=== PATIENT | male | born 1960 | race Caucasian/White ===

== ENCOUNTER 2016-06-12 07:40 | Day surgery (SDC) | payer BC ==
[2016-06-07 09:40] VITALS: BMI 30.1
[~2016-06-12 07:40] MED LIST: LACTATED RINGERS 1,000 ML IV SCH
[2016-06-12 08:02] VITALS: RESP 16; TEMP 98.2
[2016-06-12] MEDS ORDERED: LIDOCAINE 1% 20 ML VIAL (10MG/ML) FOR IV START INTRADERMA ONE (08:07)
[2016-06-12] MEDS ORDERED: LIDOCAINE 1% INJ 10MG/ML (20 ML MDV) ONE (08:40)
[2016-06-12] MEDS ORDERED: PROPOFOL 10 MG/ML 20 ML VIAL IV ONE (08:40)
--- NOTE | 2016-06-12 09:15 | P.PCN ---
Date of Procedure: 06/12/16 Procedure(s) Performed: Procedure: Colonoscopy and polypectomy. Preoperative diagnosis: Screening for neoplasia. Postoperative diagnosis: Small/diminutive polyps in the sigmoid and rectum snared but no large polyps or cancer. Preparation: HalfLytely prep. Sedation: Was provided by anesthesia. Brief clinical history: The patient is a 56-year-old male who is referred for this evaluation for screening for neoplasia age being his risk factor. He has no abdominal complaints, bleeding or anemia. No family history of colon cancer. This would be his first colonoscopy. Procedure: With the patient on his left lateral decubitus position and after informed consent and adequate sedation, the perianal area was inspected and it did not show any fissures or fistulas. There were no masses felt on digital rectal examination. The Olympus CFQ 160L video colonoscope was then inserted in the rectum in the usual fashion and advanced to the cecum. The preparation was good. The mucosa appeared healthy. There were 3 small/diminutive polyps noted in the rectum and distal sigmoid. Two were snared and retrieved by suction and one in the distal sigmoid was fulgurated. There were no large polyps or cancer. I retroflexed endoscope in the rectum before the endoscope was withdrawn. The patient tolerated the procedure well. Plan: The patient was reassured. He will follow up with you as planned and I recommended repeat exam in 5 years.
[2016-06-12 09:44] VITALS: BP 115/76; PULSE 70
== END 2016-06-12 09:46 | disposition home or self-care (01) ==
LOC: ORWHC2ENDO 07:40
DX: Z12.11 Encounter for screening for malignant neoplasm of colon (principal); D12.5 Benign neoplasm of sigmoid colon; K63.5 Polyp of colon; K62.1 Rectal polyp; I10 Essential (primary) hypertension; Z79.82 Long term (current) use of aspirin; Z79.899 Other long term (current) drug therapy; Z87.891 Personal history of nicotine dependence
CPT/HCPCS: 45388; 45385; 88305; J2001; J2704; 99153

== ENCOUNTER → 2017-03-05 | Outpatient (CLI) | payer BC ==
[2017-03-05 10:37] LABS: CH 31.3; CHCM 33.6; HCT 45.2 % (39.0-53.0); HDW 2.31; HGB 14.8 gm/dL (13.0-17.5); MCH 30.7 pg (25.0-35.0); MCHC 32.8 g/dL (31.0-37.0); MCV 93.7 fL (80.0-100.0); Mean Platelet Volume 6.8; RBC 4.83 m/uL (4.30-5.90); RDW 12.1 % (11.5-15.5); WBC 11.3 k/uL (3.8-10.6)
[2017-03-05 11:42] LABS: ALT 45 U/L (21-72); AST 41 U/L (17-59); Alkaline Phosphatase 80 U/L (38-126); Anion Gap 10 mmol/L; Blood Urea Nitrogen 27 mg/dL (9-20); Calcium 10.2 mg/dL (8.4-10.2); Carbon Dioxide 25 mmol/L (22-30); Chloride 103 mmol/L (98-107); Cholesterol 235 mg/dL (<200); Glucose 114 mg/dL (74-99); HDL Cholesterol 70 mg/dL (40-60); Non-African American GFR(MDRD) 56 (>60 ml/min/1.73 sqM); Potassium 5.3 mmol/L (3.5-5.1); Sodium 138 mmol/L (137-145); Total Bilirubin 0.8 mg/dL (0.2-1.3)
[2017-03-05 12:52] LABS: Prostate Specific Antigen 1.67 ng/mL (0.00-4.00)
== END | disposition home or self-care (01) ==
LOC: LABWHC1 09:42
PROVIDERS: ATTEND Family Medicine
DX: Z00.01 Encounter for general adult medical examination with abnormal findings (principal); I10 Essential (primary) hypertension
CPT/HCPCS: 36415; 80053; 80061; 84153; 85027

== ENCOUNTER 2019-02-03 22:31 | Emergency (ER) | payer BC ==
[2019-02-03] MEDS ORDERED: KETOROLAC 30 MG/ML 1 ML VIAL IVP STA (22:53)
[2019-02-03] MEDS ORDERED: DIAZEPAM 5 MG TAB PO STA (22:54)
[2019-02-03] MEDS ORDERED: predniSONE 20 MG TAB PO STA (22:54)
--- NOTE | 2019-02-03 22:54 | ED ---
Back Pain HPI - General Chief Complaint: Back Pain/Injury Stated Complaint: Sciatica Pain Time Seen by Provider: 02/03/19 22:42 Source: patient Limitations: no limitations - History of Present Illness Initial Comments: 58-year-old male presents emergency for evaluation of right-sided sciatica. Patient states since Sunday he has had his sciatic pain he states that it is a sharp burning pain from the right side of the lower back down to the buttock towards the right knee. Patient states he has experienced this before comes and goes. Patient denies pain greater than 6 weeks. He denies any history of trauma or falls. Patient states he is an avid runner and ran 6 miles earlier this week. Patient denies history of cancer or IV drug use. Patient denies any paresthesias anesthesia or weakness of the lower extremities. Patient denies any urinary retention or incontinence of bowel or bladder. He denies any increase in the pain at night. Denies abdominal pain,chest pain, hematuria, dysuria, groin pain, frequency. Patient states that the pain does increase when sitting or lying flat with pressure on the right buttock. Patient states the pain is relieved when standing up that increases with ambulation. Patient has a fever or chills night sweats. Patient denies any coagulopathies. Upon arrival patient is ambulating without difficulty, afebrile. - Related Data Home Medications Medication Instructions Recorded Confirmed Aspirin [Adult Low Dose Aspirin EC] 81 mg PO DAILY 06/07/16 06/12/16 Chromium 1 tab PO DAILY 06/07/16 06/12/16 Curcumin 1 cap PO DAILY 06/07/16 06/12/16 Garlic 1 each PO DAILY 06/07/16 06/12/16 L.acidoph,Paracasei, B.lactis 1 each PO DAILY 06/07/16 06/12/16 [Probiotic] Lisinopril [Zestril] 10 mg PO DAILY 06/07/16 06/12/16 Multivitamins, Thera [Multivitamin] 1 tab PO DAILY 06/07/16 06/12/16 [place]-3 Fatty Acids/Fish Oil [Fish 1 each PO DAILY 06/07/16 06/12/16 Oil 1,000 mg Softgel] Ubidecarenone [Co Q-10] 100 mg PO DAILY 06/07/16 06/12/16 Previous Rx's Medication Instructions Recorded predniSONE 20 mg PO BID 5 Days #10 tab 02/03/19 Allergies Allergy/AdvReac Type Severity Reaction Status Date / Time No Known Allergies Allergy Verified 02/03/19 22:40 Review of Systems ROS Statement: Those systems with pertinent positive or pertinent negative responses have been documented in the HPI. ROS Other: All systems not noted in ROS Statement are negative. Past Medical History Past Medical History: Hypertension, Skin Disorder Additional Past Medical History / Comment(s): HX OF JAUNDICE AT 7 YEARS OLD, CHAPPED SKIN GROIN AREA FROM SWEATING WITH EXERCISE. History of Any Multi-Drug Resistant Organisms: None Reported Past Surgical History: Hernia Repair Additional Past Surgical History / Comment(s): LEFT INGUINAL HERNIA, 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 Past Anesthesia/Blood Transfusion Reactions: No Reported Reaction Past Psychological History: No Psychological Hx Reported Smoking Status: Former smoker Past Alcohol Use History: Rare Past Drug Use History: None Reported - Past Family History Mother Family Medical History: No Reported History General Exam - General Exam Comments Initial Comments: General: The patient is awake and alert, in no distress, and does not appear acutely ill. Eye: Pupils are equal, round and reactive to light, extra-ocular movements are intact. No nystagmus. There is normal conjunctiva bilaterally. No signs of icterus. Ears, nose, mouth and throat: There are moist mucous membranes and no oral lesions. Neck: The neck is supple, there is no tenderness or JVD. Cardiovascular: There is a regular rate and rhythm. No murmur, rub or gallop is appreciated. Respiratory: Lungs are clear to auscultation, respirations are non-labored, breath sounds are equal. No wheezes, stridor, rales, or rhonchi. Musculoskeletal: Normal inspection of the thoracic and lumbar spine. No masses ecchymosis abrasions or signs of trauma. Patient able to fully range at the lower external ears bilaterally. With full strength. No saddle anesthesia. Normal ROM, no tenderness. Weight bearing without difficulty.. Pulses equal bilaterally 2+. Patient has tenderness to palpation of the mid buttock. Neurological: A&O x 3. CN II-XII intact grossly, There are no obvious motor or sensory deficits. Coordination appears grossly intact. Speech is normal. Skin: Skin is warm and dry and no rashes or lesions are noted. Psychiatric: Cooperative, appropriate mood & affect, normal judgment. Limitations: no limitations Course Vital Signs 02/03/19 22:38 Temperature 98.0 F Pulse Rate 70 Respiratory 16 Rate Blood Pressure 174/77 O2 Sat by Pulse 98 Oximetry Medical Decision Making - Medical Decision Making 58-year-old male presenting to the ER for sciatic pain. Patient has experienced this pain in the past. Patient states he believes he slept on it wrong. History taking reveals no flags concerning for cauda equina. No midline tenderness to palpation on exam. Patient given Toradol, Valium. Patient requesting medication just asleep and then he would like to be discharged home. Patient given 50 mg by mouth Benadryl. Patient instructed to follow-up with primary care provider return parameters discussed patient was discharged appearing well to discuss the case with attending provider Dr. Martinez Disposition Clinical Impression: Right low back pain, Right sciatic nerve pain Disposition: HOME SELF-CARE Condition: Good Instructions (If sedation given, give patient instructions): Sciatica (ED) Additional Instructions: Please use medication as discussed. Please follow-up with family doctor in the next 2 days. Please return to emergency room if the symptoms increase or worsen or for any other concerns. Prescriptions: predniSONE 20 mg PO BID 5 Days #10 tab Is patient prescribed a controlled substance at d/c from ED?: No Referrals: Ryan Gallardo MD [Primary Care Provider] - 1-2 days Time of Disposition: 23:42
[2019-02-03] MEDS ORDERED: KETOROLAC 30 MG/ML 1 ML VIAL IM STA (23:06)
[2019-02-03] MEDS ORDERED: diphenhydrAMINE 50 MG CAP PO STA (23:36)
[2019-02-03 23:45] VITALS: BP 167/77; PULSE 73; RESP 18; TEMP 98
== END 2019-02-03 23:52 | disposition home or self-care (01) ==
LOC: EC 22:31
DX: M54.41 Lumbago with sciatica, right side (principal); I10 Essential (primary) hypertension; Z87.891 Personal history of nicotine dependence; Z79.82 Long term (current) use of aspirin; Z79.899 Other long term (current) drug therapy
CPT/HCPCS: 99283; 96372; J1885; J7512

== ENCOUNTER → 2019-03-12 | Outpatient (CLI) | payer BC ==
[2019-03-12 10:15] LABS: HCT 43.6 % (39.0-53.0); HGB 14.4 gm/dL (13.0-17.5); MCH 30.6 pg (25.0-35.0); MCHC 33.1 g/dL (31.0-37.0); MCV 92.5 fL (80.0-100.0); Platelet Count 265 k/uL (150-450); RBC 4.71 m/uL (4.30-5.90); RDW 12.1 % (11.5-15.5); WBC 5.9 k/uL (3.8-10.6)
[2019-03-12 12:31] LABS: Appearance,Urine Clear (Clear); Bilirubin,Urine Negative (Negative); Blood,Urine Negative (Negative); Color,Urine Yellow; Glucose,Urine (UA) Negative (Negative); Ketones,Urine 1+ (Negative); Leukocyte Esterase,Urine Negative (Negative); Nitrite,Urine Negative (Negative); Protein,Urine Negative (Negative); Specific Gravity,Urine 1.019 (1.001-1.035); Urobilinogen,Urine <2.0 mg/dL (<2.0)
[2019-03-12 16:01] LABS: African American GFR (CKD) 84.1 (60.0-200.0); Albumin 4.5 g/dL (3.80-4.90); Albumin/Globulin Ratio 2.25 (1.60-3.17); Anion Gap 11.3 mmol/L (4.00-12.00); BUN/Creat Ratio 23.64 Ratio (12.00-20.00); Calcium 9.5 mg/dL (8.7-10.3); Carbon Dioxide 23.7 mmol/L (21.6-31.8); Chol/HDL Ratio 3.55; LDL Cholesterol,Calculated 159.2 mg/dL (0.0-131.0); Non-African American GFR(CKD) 72.6 (60.0-200.0); Potassium 4.8 mmol/L (3.5-5.5); Total Bilirubin 0.8 mg/dL (0.2-1.2); Total Protein 6.5 g/dL (6.2-8.2); VLDL Calculation 16.8 mg/dL (5.00-40.00)
== END | disposition home or self-care (01) ==
LOC: LABWHC1 08:53
PROVIDERS: ATTEND Family Medicine
DX: Z00.01 Encounter for general adult medical examination with abnormal findings (principal)
CPT/HCPCS: 36415; 80053; 80061; 81003; 84153; 85027

== ENCOUNTER → 2019-07-01 | Outpatient (CLI) | payer BC ==
[2019-07-01 11:57] LABS: HGB 14.8 gm/dL (13.0-17.5); MCH 30.7 pg (25.0-35.0); MCHC 33.6 g/dL (31.0-37.0); MCV 91.1 fL (80.0-100.0); Mean Platelet Volume 7.7; Platelet Count 236 k/uL (150-450); RBC 4.83 m/uL (4.30-5.90); RDW 11.8 % (11.5-15.5); WBC 5.7 k/uL (3.8-10.6)
== END | disposition home or self-care (01) ==
LOC: LABPAT 10:23
PROVIDERS: ATTEND Surgery
DX: Z01.810 Encounter for preprocedural cardiovascular examination (principal); Z01.812 Encounter for preprocedural laboratory examination; K40.90 Unilateral inguinal hernia, without obstruction or gangrene, not specified as recurrent
CPT/HCPCS: 85027; 93005

== ENCOUNTER 2019-07-02 07:12 | Day surgery (SDC) | payer BC ==
[2019-07-01 09:44] VITALS: BMI 29.2
[~2019-07-02 07:12] MED LIST changes: +DEXAMETHASONE SOD PHOSPHATE 10 MG/ML 1 ML VIAL IV ONE; +HEPARIN SODIUM,PORCINE 5,000 UNIT/ML 1 ML VIAL SQ ONE; +HYDROmorphone 0.5 MG/0.5 ML SYRINGE IVP PRN; +LIDOCAINE 1% (10MG/ML) FOR IV START INTRADERMA PRN; +MIDAZOLAM 2 MG/2 ML VIAL IV PRN; +ONDANSETRON 4 MG/2 ML VIAL IVP ONE; +SCOPOLAMINE 1.5MG/72HR PATCH TRANSDERM ONE
[2019-07-02] MEDS ORDERED: fentaNYL (PF) 50 MCG/ML 2 ML AMP IVP ONE (08:27)
--- NOTE | 2019-07-02 08:57 | P.ANPRN ---
Procedure Note - Anesthesia - Nerve Block Performed Right Transversus Abdominis Single Time Out Performed: Yes ([id number]) Date of Procedure: 07/02/19 Procedure Start Time: : Procedure Stop Time: : Location of Patient: PreOp Indication: Acute Post-Operative Pain, Requested by Surgeon Specifically requested for management of pain by DrAlexander: Nilesh Ruiz Sedation Type: Sedate with meaningful contact maintained Preparation: Sterile Prep Position: Supine Catheter: None Needle Types: Pajunk Needle Gauge: 21 Ultrasound used to visualize needle placement: Yes Ultrasound used to observe medication spread: Yes Injectate: 0.5% Ropivacaine (see comment for volume) (20cc) Blood Aspirated: No Pain Paresthesia on Injection Noted: No Resistance on Injection: Normal Image Stored and Saved: Yes Events: Uneventful and Well Tolerated
[2019-07-02] MEDS ORDERED: fentaNYL (PF) 50 MCG/ML 2 ML AMP ONE (09:30)
[2019-07-02] MEDS ORDERED: PROPOFOL 10 MG/ML 20 ML VIAL IV ONE (09:30)
[2019-07-02] MEDS ORDERED: MIDAZOLAM 2 MG/2 ML VIAL ONE (09:30)
[2019-07-02] MEDS ORDERED: GLYCOPYRROLATE 0.2 MG/ML 2 ML VIAL ONE (09:30)
[2019-07-02] MEDS ORDERED: ROPIVACAINE 5 MG/ML 30 ML VIAL ONE (09:30)
[2019-07-02] MEDS ORDERED: LIDOCAINE 1% INJ 10MG/ML (20 ML MDV) ONE (09:30)
[2019-07-02] MEDS ORDERED: NEOSTIGMINE 1 MG/ML 10 ML VIAL ONE (09:30)
[2019-07-02] MEDS ORDERED: ROCURONIUM BROMIDE 10 MG/ML 5 ML VIAL IV ONE (09:30)
[2019-07-02] MEDS ORDERED: BUPIVACAINE (PF) 0.25% 30 ML VIAL SQ ONE ×2 (09:52)
[2019-07-02] MEDS ORDERED: LACTATED RINGERS 1,000 ML IV ONE (10:50)
--- NOTE | 2019-07-02 11:12 | P.OP ---
Date of Procedure: 07/02/19 Procedure(s) Performed: PREOPERATIVE DIAGNOSIS: Right inguinal hernia POSTOPERATIVE DIAGNOSIS: Same PROCEDURE: Laparoscopic repair right inguinal hernia with the da Joe robot assistance with mesh SURGEON: Joseph EBL: Minimal ANESTHESIA: General COMPLICATIONS: None OPERATIVE PROCEDURE: Patient was placed in the operating table in the supine position. The patient was placed under general anesthesia. The abdomen was prepped and draped in usual sterile fashion. A small curvilinear supraumbilical incision was made. The fascia was retracted anteriorly with Jaki forceps. The Veress needle was inserted. The saline drop test was normal. Insufflation took place to 15 mmHg. An 8 mm trocar was used to enter the peritoneal cavity at that time. 2 additional 8 mm trochars were placed in the right upper quadrant and left upper quadrant under visualization. The robotic arms were then brought in and docked into place. The fenestrated bipolar was used in the left arm and the laparoscopic zulma was utilized in the right arm. A 30 8 mm scope was used in the up position. The peritoneal cavity was inspected. The patient's left groin had no evidence of hernia. The right groin had what initially appeared to represent a direct hernia with the hole in the peritoneum being medial to the inferior epigastric vasculature. The peritoneum was incised in a horizontal fashion cephalad to the internal inguinal ring. Following that careful dissection of the preperitoneal space took place. This took place using both electrocautery, sharp dissection but primarily blunt dissection. Visualization of the pubic tubercle and Bayron's ligament took place medially. Full dissection took place laterally as well. The hernia sac was fully dissected. It was evident that this time that there was extension of the hernia sac into the internal inguinal ring making this an indirect hernia. Once we had adequate space the 15 x 10 progrip mesh was advanced into the preperitoneal space and flattened out appropriately to cover all potential hernia sites. No sutures were used. The peritoneal defect was then closed using a locking 2-0 strata fix suture. A small defect in the peritoneum was closed using a [id number] 3-0 Vicryl suture. The pneumoperitoneum was then evacuated. The skin of all 3 si fredrick was closed using a 4-0 Monocryl stitch. Skin glue was then applied. DISPOSITION: Stable to recovery room
[2019-07-02 11:23] VITALS: RESP 16; TEMP 97.3
[2019-07-02 12:34] VITALS: BP 97/55; PULSE 71
== END 2019-07-02 13:06 | disposition home or self-care (01) ==
LOC: OR 07:12
PROVIDERS: ATTEND Surgery
DX: K40.90 Unilateral inguinal hernia, without obstruction or gangrene, not specified as recurrent (principal); I10 Essential (primary) hypertension; R73.03 Prediabetes; Z98.890 Other specified postprocedural states; Z82.49 Family history of ischemic heart disease and other diseases of the circulatory system; Z79.899 Other long term (current) drug therapy
CPT/HCPCS: 49650; S2900; 64486

== ENCOUNTER → 2020-03-16 | Outpatient (CLI) | payer BC ==
[2020-03-16 09:47] LABS: HCT 43.9 % (39.0-53.0); HGB 15.1 gm/dL (13.0-17.5); MCH 31.6 pg (25.0-35.0); MCHC 34.3 g/dL (31.0-37.0); Mean Platelet Volume 7.1; Platelet Count 233 k/uL (150-450); RBC 4.77 m/uL (4.30-5.90); WBC 5.7 k/uL (3.8-10.6)
[2020-03-16 15:55] LABS: African American GFR (CKD) 106.5 (60.0-200.0); Albumin 4.4 g/dL (3.80-4.90); Albumin/Globulin Ratio 1.91 (1.60-3.17); BUN/Creat Ratio 13.33 Ratio (12.00-20.00); Chol/HDL Ratio 3.41; Globulin 2.3 g/dL (1.6-3.3); LDL Cholesterol,Calculated 135.6 mg/dL (0.0-131.0); Non-African American GFR(CKD) 91.9 (60.0-200.0); Potassium 4.8 mmol/L (3.5-5.5); Total Bilirubin 0.8 mg/dL (0.3-1.2); Total Protein 6.7 g/dL (6.2-8.2); VLDL Calculation 18.4 mg/dL (5.00-40.00)
== END | disposition home or self-care (01) ==
LOC: LABWHC1 08:45
PROVIDERS: ATTEND Family Medicine
DX: Z00.01 Encounter for general adult medical examination with abnormal findings (principal)
CPT/HCPCS: 80061; 80053; 85027; 36415; G0103

== ENCOUNTER → 2021-02-24 | Outpatient (CLI) | payer BC ==
[2021-02-24 11:31] LABS: HCT 43.2 % (39.6-50.0); HGB 14.2 g/dL (13.0-17.0); MCH 30.1 pg (27.0-32.0); MCHC 32.9 g/dL (32.0-37.0); MCV 91.5 fL (80.0-97.0); Mean Platelet Volume 9.9 fL (9.5-12.2); Platelet Count 250 X 10*3/uL (140-440); RBC 4.72 X 10*6/uL (4.40-5.60); RDW 12.2 % (11.5-14.5)
[2021-02-24 15:29] LABS: African American GFR (CKD) 83.9 (60.0-200.0); Albumin 4.8 g/dL (3.8-4.9); Anion Gap 15.2 mmol/L (4.00-12.00); BUN/Creat Ratio 21.74 Ratio (12.00-20.00); Blood Urea Nitrogen 23.7 mg/dL (9.0-27.0); Calcium 9.6 mg/dL (8.7-10.3); Carbon Dioxide 21.4 mmol/L (21.6-31.8); Chol/HDL Ratio 3.36 Ratio; Globulin 2.4 g/dL (1.6-3.3); HDL Cholesterol 78.2 mg/dL (40.00-60.00); LDL Cholesterol,Calculated 169.9 mg/dL (0.0-131.0); Non-African American GFR(CKD) 72.4 (60.0-200.0); Potassium 5.4 mmol/L (3.5-5.5); Prostate Specific Antigen 2.3 ng/mL (0.00-4.50); Total Bilirubin 0.8 mg/dL (0.30-1.20); Total Protein 7.2 g/dL (6.2-8.2); Triglycerides 74.3 mg/dL (0.00-149.00); VLDL Calculation 14.86 mg/dL (5.00-40.00)
== END | disposition home or self-care (01) ==
LOC: LABWHC1 08:02
PROVIDERS: ATTEND Family Medicine
DX: Z00.01 Encounter for general adult medical examination with abnormal findings (principal)
CPT/HCPCS: 36415; 80053; 80061; 84153; 85027

== ENCOUNTER → 2022-02-27 | Outpatient (CLI) | payer BC ==
[2022-02-27 18:11] LABS: HCT 42.6 % (39.6-50.0); HGB 14.9 g/dL (13.0-17.0); MCH 30.8 pg (27.0-32.0); MCV 88.2 fL (80.0-97.0); Mean Platelet Volume 9.4 fL (9.5-12.2); NRBC Per 100 WBC 0 /100 WBCS (0.0-0.0); Platelet Count 246 X 10*3/uL (140-440); RBC 4.83 X 10*6/uL (4.40-5.60); RDW 11.8 % (11.5-14.5); WBC 6.61 X 10*3/uL (4.50-10.00)
[2022-02-27 18:29] LABS: ALT 26 U/L (10-49); AST 25 U/L (14-35); African American GFR (CKD) 109.6 (60.0-200.0); Albumin 4.6 g/dL (3.8-4.9); Albumin/Globulin Ratio 1.99 (1.60-3.17); Alkaline Phosphatase 89 U/L (41-126); BUN/Creat Ratio 11.29 Ratio (12.00-20.00); Blood Urea Nitrogen 9.2 mg/dL (9.0-27.0); Calcium 9.2 mg/dL (8.7-10.3); Carbon Dioxide 26.3 mmol/L (20.0-27.5); Chloride 98 mmol/L (96-109); Chol/HDL Ratio 3.85 Ratio; Globulin 2.3 g/dL (1.6-3.3); Glucose 115 mg/dL (70-110); LDL Cholesterol,Calculated 168.9 mg/dL (0.0-131.0); Non-African American GFR(CKD) 94.5 (60.0-200.0); Potassium 4.6 mmol/L (3.5-5.5); Sodium 134 mmol/L (135-145); Total Protein 6.9 g/dL (6.2-8.2); VLDL Calculation 16.16 mg/dL (5.00-40.00)
== END | disposition home or self-care (01) ==
LOC: LABWHC1 11:08
PROVIDERS: ATTEND Family Medicine
DX: Z00.01 Encounter for general adult medical examination with abnormal findings (principal); R73.09 Other abnormal glucose
CPT/HCPCS: 36415; 80053; 80061; 83036; 84153; 85027

== ENCOUNTER 2022-02-28 10:12 | Day surgery (SDC) | payer BC ==
[2022-02-23 09:18] VITALS: BMI 28.5
[2022-02-28] MEDS ORDERED: LIDOCAINE 1% (10MG/ML) FOR IV START INTRADERMA PRN (10:40)
[2022-02-28] MEDS ORDERED: LACTATED RINGERS 1,000 ML IV SCH (10:40)
[2022-02-28 10:49] VITALS: RESP 16; TEMP 97.6
[2022-02-28] MEDS ORDERED: LACTATED RINGERS 1,000 ML IV ONE (10:49)
[2022-02-28] MEDS ORDERED: PROPOFOL 10 MG/ML 20 ML VIAL IV ONE (11:07)
[2022-02-28] MEDS ORDERED: LIDOCAINE 2% INJ 20 MG/ML (2 ML VIAL) ONE (11:07)
--- NOTE | 2022-02-28 11:10 | P.GSHP ---
History of Present Illness H&P Date: 02/28/22 Chief Complaint: Colon cancer screening 61-year-old male here today for colonoscopy. Patient had 3 small polyps when he had his last colonoscopy 5 years ago. Biopsies were benign. No bowel complaints. Family history of colon cancer in a grandparent possibly. Past Medical History Past Medical History: Hypertension Additional Past Medical History / Comment(s): Covid infection ,steroids Dec 2021, HX OF JAUNDICE AT 7 YEARS OLD History of Any Multi-Drug Resistant Organisms: None Reported Past Surgical History: Hernia Repair Additional Past Surgical History / Comment(s): Sher INGUINAL HERNIA, 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 Past Anesthesia/Blood Transfusion Reactions: No Reported Reaction Smoking Status: Former smoker - Past Family History Mother Family Medical History: No Reported History Additional Family Medical History / Comment(s): preleukemia Medications and Allergies Home Medications Medication Instructions Recorded Confirmed Type lisinopriL [Zestril] 10 mg PO QAM 06/07/16 02/28/22 History Ascorbic Acid [Vitamin C] 1,000 mg PO DAILY 02/23/22 02/28/22 History Aspirin 81 mg PO DAILY 02/23/22 02/28/22 History Cholecalciferol [Vitamin D3 (25 50 mcg PO DAILY 02/23/22 02/28/22 History Mcg = 1000 Iu)] Multivitamins, Thera [Multivitamin 1 tab PO DAILY 02/23/22 02/28/22 History (formulary)] amLODIPine [Norvasc] 2.5 mg PO QAM 02/23/22 02/28/22 History Allergies Allergy/AdvReac Type Severity Reaction Status Date / Time No Known Allergies Allergy Verified 02/28/22 10:46 Surgical - Exam Vital Signs Temp Pulse Resp BP Pulse Ox 97.6 F 99 16 162/78 98 02/28/22 10:48 02/28/22 10:48 02/28/22 10:48 02/28/22 10:48 02/28/22 10:48 Physical exam: General: Well-developed, well-nourished HEENT: Normocephalic, sclerae nonicteric Abdomen: Nontender, nondistended Extremities: No edema Neuro: Alert and oriented Assessment and Plan (1) Colon cancer screening Narrative/Plan: Will proceed with colonoscopy at this time. Current Visit: Yes Status: Acute Code(s): Z12.11 - ENCOUNTER FOR SCREENING FOR MALIGNANT NEOPLASM OF COLON SNOMED Code(s): 059453091
--- NOTE | 2022-02-28 11:25 | P.PCN ---
Date of Procedure: 02/28/22 Procedure(s) Performed: PREOPERATIVE DIAGNOSIS: Colon cancer screening, history of polyps POSTOPERATIVE DIAGNOSIS: Normal exam PROCEDURE: Colonoscopy ANESTHESIA: MAC SURGEON: Nilesh Ruiz M.D. SPECIMENS: None ENDOSCOPIC PROCEDURE: The patient was placed on the endoscopy table in the left decubitus position. The Olympus colonoscope was inserted into the anus and passed under direct visualization to the base of the cecum. The appendiceal orifice was visualized. From that point the scope was slowly withdrawn inspecting all surfaces carefully. There were no neoplastic inflammatory or polypoid lesions throughout the cecum, ascending, transverse, descending, sigmoid and rectum. There was no visible diverticulosis noted. Digital rectal examination was normal. The patient was taken to the recovery room in stable condition per anesthesia guidelines. RECOMMENDATIONS: Resume diet. Repeat colonoscopy 7-10 years
[2022-02-28 11:57] VITALS: BP 149/76; PULSE 79
== END 2022-02-28 12:04 | disposition home or self-care (01) ==
LOC: ORWHC2ENDO 10:12
PROVIDERS: ATTEND Surgery
DX: Z12.11 Encounter for screening for malignant neoplasm of colon (principal); I10 Essential (primary) hypertension; Z86.16 Personal history of COVID-19; Z86.010 Personal history of colon polyps; Z87.891 Personal history of nicotine dependence; Z79.82 Long term (current) use of aspirin
CPT/HCPCS: 45378; J2704; J2001

== ENCOUNTER 2024-02-13 13:01 | Inpatient (IN) | payer BC, MEDICARE ==
[2024-02-13 13:06] VITALS: TEMP 98
--- NOTE | 2024-02-13 13:33 | ED ---
Arrhythmia/Palpitations HPI - General Chief Complaint: Arrhythmia/Palpitations Stated Complaint: HTN Time Seen by Provider: 02/13/24 13:05 Source: patient Mode of arrival: ambulatory Limitations: no limitations - History of Present Illness Initial Comments: 63-year-old male presents emergency department reporting palpitations. States that he had exercised this morning. Prior to hospital arrival he suddenly had sensation that his heart was racing. took his heart rate at home and found it to be high and therefore suggested that he come to the hospital. He has history of hypertension and takes amlodipine and lisinopril. No history of any irregular heart rhythms no history of coronary disease. No history of valvular disease. Patient does not take any blood thinners. No history of DVT or PE. No calf pain or swelling. No thyroid issues. No other alleviating, precipitating or modifying factors - Related Data Home Medications Medication Instructions Recorded Confirmed Multivitamins, Thera [Multivitamin 1 tab PO DAILY 02/23/22 02/13/24 (formulary)] Berberine Supplement 1 cap PO AC-TID 02/13/24 02/13/24 Chromium(Unknown Dose) 1 tab PO DAILY 02/13/24 02/13/24 Cinnamon(Unknown Dose) 1 tab PO DAILY 02/13/24 02/13/24 Co Q-10(Unknown Dose) 1 cap PO DAILY 02/13/24 02/13/24 Cranberry(Unknown Dose) 1 tab PO DAILY 02/13/24 02/13/24 Garlic(Unknown Dose) 1 tab PO DAILY 02/13/24 02/13/24 L.acidoph,Paracasei, B.lactis 1 cap PO DAILY 02/13/24 02/13/24 [Probiotic] Turmeric(Unknown Dose) 1 tab PO DAILY 02/13/24 02/13/24 Vitamin B Complex 1 cap PO DAILY 02/13/24 02/13/24 Vitamin C(Unknown Dose) 1 tab PO DAILY 02/13/24 02/13/24 Vitamin D(Unknown Dose) 1 tab PO DAILY 02/13/24 02/13/24 Previous Rx's Medication Instructions Recorded Apixaban [Eliquis] 5 mg PO BID #180 tab 02/14/24 Atorvastatin [Lipitor] 20 mg PO HS #90 tablet 02/14/24 Metoprolol Tartrate [Lopressor] 50 mg PO BID PRN #60 tab 02/14/24 lisinopriL [Zestril] 20 mg PO DAILY #90 tab 02/14/24 Allergies Allergy/AdvReac Type Severity Reaction Status Date / Time No Known Allergies Allergy Verified 02/13/24 16:54 Review of Systems ROS Statement: Those systems with pertinent positive or pertinent negative responses have been documented in the HPI. ROS Other: All systems not noted in ROS Statement are negative. 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 Past Anesthesia/Blood Transfusion Reactions: No Reported Reaction Past Psychological History: No Psychological Hx Reported Smoking Status: Former smoker - Past Family History Mother Family Medical History: No Reported History Additional Family Medical History / Comment(s): preleukemia General Exam Limitations: no limitations General appearance: alert, in no apparent distress Head exam: Present: atraumatic, normocephalic, normal inspection Eye exam: Present: normal appearance, PERRL, EOMI. Absent: scleral icterus, conjunctival injection, periorbital swelling ENT exam: Present: normal exam, mucous membranes moist Neck exam: Present: normal inspection. Absent: tenderness, meningismus, lymphadenopathy Respiratory exam: Present: normal lung sounds bilaterally. Absent: respiratory distress, wheezes, rales, rhonchi, stridor Cardiovascular Exam: Present: tachycardia, irregular rhythm, normal heart sounds. Absent: systolic murmur, diastolic murmur, rubs, gallop, clicks GI/Abdominal exam: Present: soft, normal bowel sounds. Absent: distended, tenderness, guarding, rebound, rigid Extremities exam: Present: normal inspection, full ROM, normal capillary refill. Absent: tenderness, pedal edema, joint swelling, calf tenderness Back exam: Present: normal inspection Neurological exam: Present: alert, oriented X3, CN II-XII intact Psychiatric exam: Present: normal affect, normal mood Skin exam: Present: warm, dry, intact, normal color. Absent: rash Course Vital Signs 02/13/24 02/13/24 02/13/24 13:02 14:28 14:30 Temperature 98 F Pulse Rate 166 H 151 H 179 H Respiratory 18 18 14 Rate Blood Pressure 173/80 103/49 103/49 O2 Sat by Pulse 99 97 96 Oximetry 02/13/24 02/13/24 02/13/24 15:00 15:29 15:30 Temperature Pulse Rate 133 H 100 100 Respiratory 14 18 14 Rate Blood Pressure 83/64 105/79 105/79 O2 Sat by Pulse 94 L Oximetry 02/13/24 02/13/24 02/13/24 16:00 16:02 16:30 Temperature Pulse Rate 96 123 H 90 Respiratory 14 14 Rate Blood Pressure 95/49 104/65 O2 Sat by Pulse Oximetry 02/13/24 02/13/24 02/13/24 17:00 17:30 18:00 Temperature Pulse Rate 90 88 85 Respiratory 12 13 15 Rate Blood Pressure 96/62 107/71 115/68 O2 Sat by Pulse Oximetry 02/13/24 02/13/24 02/13/24 18:30 19:00 22:00 Temperature Pulse Rate 88 93 73 Respiratory 14 18 14 Rate Blood Pressure 89/73 109/74 119/74 O2 Sat by Pulse 97 Oximetry 02/14/24 02/14/24 02/14/24 00:00 02:00 07:00 Temperature Pulse Rate 77 59 L 57 L Respiratory 12 12 14 Rate Blood Pressure 103/74 110/64 109/72 O2 Sat by Pulse 97 978 H Oximetry 02/14/24 02/14/24 08:59 13:00 Temperature Pulse Rate 64 77 Respiratory 16 18 Rate Blood Pressure 139/68 117/68 O2 Sat by Pulse Oximetry Medical Decision Making - Medical Decision Making Was pt. sent in by a medical professional or institution (, PA, CULLET TRUCKER, urgent care, hospital, or group home...) When possible be specific @ -No Did you speak to anyone other than the patient for history (EMS, parent, family, police, friend...)? What history was obtained from this source @ -Spoke with for history Did you review nursing and triage notes (agree or disagree)? Why? @ -I reviewed and agree with nursing and triage notes Were old charts reviewed (outside hosp., previous admission, EMS record, old EKG, old radiological studies, urgent care reports/EKG's, group home records)? Report findings @ -No old charts were reviewed Differential Diagnosis (chest pain, altered mental status, abdominal pain women, abdominal pain men, vaginal bleeding, weakness, fever, dyspnea, syncope, headache, dizziness, GI bleed, back pain, seizure, CVA, palpatations, mental health, musculoskeletal)? @ -Differential Palpitations Ventricular arrhythmias, atrial arrhythmias, myocardial infarction, anemia, thyrotoxicosis, electrolyte imbalance, hypokalemia, pulmonary embolism, pulmonary disease, drugs, alcohol, anxiety, stress.... This is not meant to be an all-inclusive list. EKG interpreted by me (3pts min.). @ -Yes and demonstrates A-fib with rate of 166. QRS 104. QTc of 348. No acute ST segment elevations or depressions X-rays interpreted by me (1pt min.). @ -Yes and demonstrates no acute process CT interpreted by me (1pt min.). @ -None done U/S interpreted by me (1pt. min.). @ -None done What testing was considered but not performed or refused? (CT, X-rays, U/S, labs)? Why? @ -None What meds were considered but not given or refused? Why? @ -None Did you discuss the management of the patient with other professionals (job bower i.e. , PA, CULLET TRUCKER, lab, RT, psych nurse, social science research assistant, documentation engineer, teacher, registration officer, returned case inspector)? Give summary @ -Spoke with admitting physician Was smoking cessation discussed for >3mins.? @ -No Was critical care preformed (if so, how long)? @ -Yes, 35 minutes for management of rapid A-fib on Cardifemi drip Were there social determinants of health that impacted care today? How? (Ho melessness, low income, unemployed, alcoholism, drug addiction, transportation, low edu. Level, literacy, decrease access to med. care, skilled nursing, rehab)? @ -No Was there de-escalation of care discussed even if they declined (Discuss DNR or withdrawal of care, Hospice)? DNR status @ -No What co-morbidities impacted this encounter? (DM, HTN, Smoking, COPD, CAD, Cancer, CVA, ARF, Chemo, Hep., AIDS, mental health diagnosis, sleep apnea, morbid obesity)? @ -None Was patient admitted / discharged? Hospital course, mention meds given and route, prescriptions, significant lab abnormalities, going to OR and other pertinent info. @ -Upon arrival patient seen and evaluated in bed 16. Thorough history and physical exam was performed. Patient does arrive with markedly elevated heart rate. IV is established. Laboratory studies are conducted. Chest x-ray was performed. Patient initiated on Cardizem which does have improvement in his rate. He is also started on a heparin drip. Recommended admission for new diagnosis of A-fib with RVR. Patient was agreeable with admission. Spoke with Dr. russ for admission Undiagnosed new problem with uncertain prognosis? @ -No Drug Therapy requiring intensive monitoring for toxicity (Heparin, Nitro, Insulin, Cardizem)? @ -Heparin, Cardizem Were any procedures done? @ -No Diagnosis/symptom? @ -New onset A-fib with RVR Acute, or Chronic, or Acute on Chronic? @ -Acute Uncomplicated (without systemic symptoms) or Complicated (systemic symptoms)? @ -Complicated Side effects of treatment? @ -No Exacerbation, Progression, or Severe Exacerbation? @ -No Poses a threat to life or bodily function? How? (Chest pain, [place], [place], pneumonia, PE, COPD, DKA, ARF, appy, cholecystitis, CVA, Diverticulitis, Homicidal, Suicidal, threat to staff... and all critical care pts) @ -Yes this patient arrives with markedly elevated heart rate - Lab Data Result diagrams: 02/14/24 09:17 02/14/24 09:17 Lab Results 02/13/24 02/13/24 02/13/24 Range/Units 13:28 13:28 13:28 WBC 8.7 (3.8-10.6) k/uL RBC 4.97 (4.30-5.90) m/uL Hgb 15.2 (13.0-17.5) gm/dL Hct 45.8 (39.0-53.0) % MCV 92.1 (80.0-100.0) fL MCH 30.7 (25.0-35.0) pg MCHC 33.3 (31.0-37.0) g/dL RDW 12.5 (11.5-15.5) % Plt Count 267 (150-450) k/uL MPV 7.3 Neutrophils % 80 % Lymphocytes % 13 % Monocytes % 4 % Eosinophils % 1 % Basophils % 0 % Neutrophils # 7.0 (1.3-7.7) k/uL Lymphocytes # 1.2 (1.0-4.8) k/uL Monocytes # 0.4 (0-1.0) k/uL Eosinophils # 0.1 (0-0.7) k/uL Basophils # 0.0 (0-0.2) k/uL PT 10.5 (10.0-12.5) sec INR 1.0 (<1.2) APTT 24.4 (22.0-30.0) sec D-Dimer 0.18 (<0.60) mg/L FEU Sodium 127 L (137-145) mmol/L Potassium 4.3 (3.5-5.1) mmol/L Chloride 98 (98-107) mmol/L Carbon Dioxide 20 L (22-30) mmol/L Anion Gap 9 mmol/L BUN 20 (9-20) mg/dL Creatinine 0.84 (0.66-1.25) mg/dL Est GFR (CKD-EPI)AfAm >90 (>60 ml/min/1.73 sqM) Est GFR (CKD-EPI)NonAf >90 (>60 ml/min/1.73 sqM) Glucose 266 H (74-99) mg/dL Calcium 9.2 (8.4-10.2) mg/dL Magnesium 1.8 (1.6-2.3) mg/dL Total Bilirubin 0.6 (0.2-1.3) mg/dL AST 37 (17-59) U/L ALT 29 (4-49) U/L Alkaline Phosphatase 71 (38-126) U/L Troponin I (0.000-0.034) ng/mL Total Protein 7.1 (6.3-8.2) g/dL Albumin 4.6 (3.5-5.0) g/dL TSH 0.955 (0.465-4.680) mIU/L 02/13/24 Range/Units 13:28 WBC (3.8-10.6) k/uL RBC (4.30-5.90) m/uL Hgb (13.0-17.5) gm/dL Hct (39.0-53.0) % MCV (80.0-100.0) fL MCH (25.0-35.0) pg MCHC (31.0-37.0) g/dL RDW (11.5-15.5) % Plt Count (150-450) k/uL MPV Neutrophils % % Lymphocytes % % Monocytes % % Eosinophils % % Basophils % % Neutrophils # (1.3-7.7) k/uL Lymphocytes # (1.0-4.8) k/uL Monocytes # (0-1.0) k/uL Eosinophils # (0-0.7) k/uL Basophils # (0-0.2) k/uL PT (10.0-12.5) sec INR (<1.2) APTT (22.0-30.0) sec D-Dimer (<0.60) mg/L FEU Sodium (137-145) mmol/L Potassium (3.5-5.1) mmol/L Chloride (98-107) mmol/L Carbon Dioxide (22-30) mmol/L Anion Gap mmol/L BUN (9-20) mg/dL Creatinine (0.66-1.25) mg/dL Est GFR (CKD-EPI)AfAm (>60 ml/min/1.73 sqM) Est GFR (CKD-EPI)NonAf (>60 ml/min/1.73 sqM) Glucose (74-99) mg/dL Calcium (8.4-10.2) mg/dL Magnesium (1.6-2.3) mg/dL Total Bilirubin (0.2-1.3) mg/dL AST (17-59) U/L ALT (4-49) U/L Alkaline Phosphatase (38-126) U/L Troponin I <0.012 (0.000-0.034) ng/mL Total Protein (6.3-8.2) g/dL Albumin (3.5-5.0) g/dL TSH (0.465-4.680) mIU/L Disposition Clinical Impression: Atrial fibrillation with RVR, Hyponatremia Disposition: ADMITTED IP TO THIS [facility] Condition: Stable Is patient prescribed a controlled substance at d/c from ED?: No Time of Disposition: 15:48 Decision to Admit Reason: Admit from EC Decision Date: 02/13/24 Decision Time: 15:48
[2024-02-13 13:50] LABS: Basophils % (A) 0 %; Eosinophils # (A) 0.1 k/uL (0-0.7); Eosinophils % (A) 1 %; HCT 45.8 % (39.0-53.0); HGB 15.2 gm/dL (13.0-17.5); Lymphocytes # (A) 1.2 k/uL (1.0-4.8); Lymphocytes % (A) 13 %; MCH 30.7 pg (25.0-35.0); MCHC 33.3 g/dL (31.0-37.0); MCV 92.1 fL (80.0-100.0); Mean Platelet Volume 7.3; Monocytes # (A) 0.4 k/uL (0-1.0); Monocytes % (A) 4 %; Neutrophils % (A) 80 %; Platelet Count 267 k/uL (150-450); RBC 4.97 m/uL (4.30-5.90); RDW 12.5 % (11.5-15.5); WBC 8.7 k/uL (3.8-10.6)
--- NOTE | 2024-02-13 14:04 | XR ---
EXAMINATION TYPE: XR chest 2V DATE OF EXAM: 02/13/2024 COMPARISON: NONE HISTORY: Shortness of breath TECHNIQUE: Frontal and lateral views of the chest are obtained. FINDINGS: Scattered senescent parenchymal changes noted. Hyperinflation compatible with COPD. No evidence for infiltrate. No evidence for atelectasis. Heart size is stable. Mediastinal structures are stable and grossly unremarkable. No evidence for hilar prominence. Degenerative changes dorsal spine. IMPRESSION: 1. No evidence for acute pulmonary disease. [facility], , 02/13/2024 2:02 PM
[2024-02-13 14:14] LABS: ALT 29 U/L (4-49); AST 37 U/L (17-59); African American GFR (CKD) >90 (>60 ml/min/1.73 sqM); Albumin 4.6 g/dL (3.5-5.0); Alkaline Phosphatase 71 U/L (38-126); Anion Gap 9 mmol/L; Blood Urea Nitrogen 20 mg/dL (9-20); Calcium 9.2 mg/dL (8.4-10.2); Carbon Dioxide 20 mmol/L (22-30); Chloride 98 mmol/L (98-107); Glucose 266 mg/dL (74-99); Magnesium 1.8 mg/dL (1.6-2.3); Non-African American GFR(CKD) >90 (>60 ml/min/1.73 sqM); Potassium 4.3 mmol/L (3.5-5.1); Sodium 127 mmol/L (137-145); Total Bilirubin 0.6 mg/dL (0.2-1.3); Total Protein 7.1 g/dL (6.3-8.2)
[2024-02-13 14:28] LABS: Partial Thromboplastin Time 24.4 sec (22.0-30.0); Prothrombin Time 10.5 sec (10.0-12.5)
[2024-02-13] MEDS: DILTIAZEM DRIP BOLUS FROM BAG 1 MG SOLN IV ONE (15:02)
[2024-02-13] MEDS: DILTIAZEM 125 MG in SODIUM CHLORIDE 0.9% 100 ML IV SCH (15:02)
[2024-02-13] MEDS: SODIUM CHLORIDE 0.9% 1,000 ML IV ONE (15:03)
[2024-02-13] MEDS ORDERED: NALOXONE 0.4 MG/ML 1 ML VIAL IV PRN (15:48)
[2024-02-13] MEDS ORDERED: HEPARIN SODIUM 1,000 UN/ML (10ML VL) IV PRN (15:50)
[2024-02-13] MEDS: HEPARIN SOD,PORK IN 0.45% NACL 25,000 UNIT in 0.45% NACL 1 250ML.BAG IV SCH (16:03)
[2024-02-13] MEDS: HEPARIN SODIUM 1,000 UN/ML (10ML VL) IV ONE (16:20)
[2024-02-13] MEDS ORDERED: DEXTROSE 50% SYRINGE 50 ML IVP PRN ×2 (16:35)
--- NOTE | 2024-02-13 17:03 | P.HPIM ---
History of Present Illness H&P Date: 02/13/24 Patient is a 63-year-old male with PMH of type 2 diabetes and hypertension presented to the ER after having an episode of palpitation at around 11:30 AM today. Patient states that he was at home when he started feeling sudden onset of palpitation associated with shortness of breath and diaphoresis. He describes he was feeling as if he "ran a 5K marathon". Patient had similar episode about 2 weeks ago but states it resolved after he had a meal. However at this time his symptoms did not resolve which prompted him to come to the ER for further evaluation. Patient denies any history of heart related issues such as arrhythmia and/or CAD. He has never been evaluated for any cardiac issues in the past. Patient otherwise denies nausea, vomiting, diarrhea, constipation, fever, chills, numbness or tingling in upper or lower extremities. Patient denies use of illicit drug. Denies any recent hospitalization or travel. No recent upper respiratory tract infection. Patient feels generally healthy. At the time of interview, patient is not complaining of any shortness of breath and/or chest pain. Lab evaluation shows sodium 127, potassium 4.3, chloride 98, bicarb 20, BUN 20, creatinine 0.84, glucose 266. WBC 8.7, hemoglobin 15.2, MCV 92.1, platelet count 267. Troponin I less than 0.012. TSH 0.955 Chest x-ray, independently interpreted shows no acute cardiopulmonary process. EKG shows independently interpreted A-fib with RVR. Review of systems: Pertinent positives and negatives as discussed in HPI, a complete review of systems was performed and all other systems are negative. Physical examination: Vital signs reviewed General: non toxic, no distress, appears at stated age, normal weight Derm: no unusual rashes/lesions, warm Head: atraumatic, normocephalic, symmetric Eyes: EOMI, no lid lag, anicteric sclera, pupils equal round reactive to light ENT: Nose and ears atraumatic Neck: No cervical lymphadenopathy, trachea midline, supple Mouth: no lip lesion, mucus membranes moist Cardiovascular: S1S2 irregular, tachycardic, no murmur, positive dorsalis pedis pulse bilateral, no edema Lungs: CTA bilateral, no rhonchi, no rales, no accessory muscle use Abdominal: soft, nontender to palpation, no guarding Ext: muscle strength 5 out of 5 in all 4 extremities grossly, no gross muscle atrophy, no contractures, Neuro: CN II-XI grossly intact, no gross focal neuro deficits Psych: Alert, oriented, appropriate affect Assessment/Plan: 63-year-old male with PMH of hypertension and type 2 diabetes is admitted for A- fib with the RVR. #New onset A-fib with the RVR EKG in ED shows A-fib with RVR Status post Cardizem 10 mg bolus Continue with Cardizem drip at 5 mg/h CHADVASC score is 3 Continue with heparin drip, monitor APTT, monitor for bleeding Ordered echocardiogram for structural evaluation Consult cardiology, consider cardioversion Cardiac telemetery TSH is 0.955 #Euvolemic hyponatremia Check serum osmolality Check urine sodium and urine osmolality Repeat BMP in pm #History of type 2 diabetes Patient is not on diabetic medication Serum glucose 266 Check HbA1c Accu-Chek and sliding scale insulin ACH S, monitor for hypoglycemia #Chronic conditions Hypertension Blood pressure is less than 120/80; hold lisinopril and amlodipine for now DVT prophylaxis: Heparin drip The patient is admitted with an anticipated more than 2 midnight stay for evaluation of A-fib with RVR CODE STATUS: Full code Discussed with: Patient Anticipated discharge place: Pending clinical course A total of 65 minutes was spent on the care of this complex patient more than 50% of the time was spent in counseling and care coordination. I have seen and evaluated the patient today. Discussed with the resident and a gree with the residents finding and plan as documented in the resident's note. Changes highlighted in blue font. 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 Past Anesthesia/Blood Transfusion Reactions: No Reported Reaction Past Psychological History: No Psychological Hx Reported Smoking Status: Former smoker - Past Family History Mother Family Medical History: No Reported History Additional Family Medical History / Comment(s): preleukemia Medications and Allergies Home Medications Medication Instructions Recorded Confirmed Type lisinopriL [Zestril] 10 mg PO DAILY 06/07/16 02/13/24 History Multivitamins, Thera [Multivitamin 1 tab PO DAILY 02/23/22 02/13/24 History (formulary)] amLODIPine [Norvasc] 2.5 mg PO DAILY 02/23/22 02/13/24 History Berberine Supplement 1 cap PO AC-TID 02/13/24 02/13/24 History Chromium(Unknown Dose) 1 tab PO DAILY 02/13/24 02/13/24 History Cinnamon(Unknown Dose) 1 tab PO DAILY 02/13/24 02/13/24 History Co Q-10(Unknown Dose) 1 cap PO DAILY 02/13/24 02/13/24 History Cranberry(Unknown Dose) 1 tab PO DAILY 02/13/24 02/13/24 History Fish Oil(Unknown Dose) 1 cap PO DAILY 02/13/24 02/13/24 History Garlic(Unknown Dose) 1 tab PO DAILY 02/13/24 02/13/24 History L.acidoph,Paracasei, B.lactis 1 cap PO DAILY 02/13/24 02/13/24 History [Probiotic] Turmeric(Unknown Dose) 1 tab PO DAILY 02/13/24 02/13/24 History Vitamin B Complex 1 cap PO DAILY 02/13/24 02/13/24 History Vitamin C(Unknown Dose) 1 tab PO DAILY 02/13/24 02/13/24 History Vitamin D(Unknown Dose) 1 tab PO DAILY 02/13/24 02/13/24 History Allergies Allergy/AdvReac Type Severity Reaction Status Date / Time No Known Allergies Allergy Verified 02/13/24 16:54 Physical Exam Vitals: Vital Signs Temp Pulse Resp BP Pulse Ox 02/13/24 16:02 123 H 02/13/24 15:29 100 18 105/79 02/13/24 15:00 133 H 14 83/64 94 L 02/13/24 14:30 179 H 14 103/49 96 02/13/24 14:28 151 H 18 103/49 97 02/13/24 13:02 98 F 166 H 18 173/80 99 Intake and Output 02/13/24 02/13/24 02/13/24 06:59 14:59 22:59 Other: Weight 87.543 kg Results CBC & Chem 7: 02/13/24 13:28 02/13/24 13:28 Labs: Abnormal Lab Results - Last 24 Hours (Table) 02/13/24 Range/Units 13:28 Sodium 127 L (137-145) mmol/L Carbon Dioxide 20 L (22-30) mmol/L Glucose 266 H (74-99) mg/dL
[2024-02-13 18:51] LABS: Glucose,Whole Blood 82 mg/dL (70-110)
[2024-02-13] MEDS: INSULIN ASPART (NovoLOG) 100 UNIT/ML VIAL SQ SCH (19:04)
[2024-02-13 19:10] LABS: African American GFR (CKD) >90 (>60 ml/min/1.73 sqM); Anion Gap 4 mmol/L; Blood Urea Nitrogen 17 mg/dL (9-20); Calcium 8.9 mg/dL (8.4-10.2); Carbon Dioxide 21 mmol/L (22-30); Chloride 106 mmol/L (98-107); Glucose 73 mg/dL (74-99); Non-African American GFR(CKD) >90 (>60 ml/min/1.73 sqM); Potassium 4.1 mmol/L (3.5-5.1); Sodium 131 mmol/L (137-145)
[2024-02-13 20:38] LABS: Glucose,Whole Blood 152 mg/dL (70-110)
[2024-02-14 07:33] LABS: Glucose,Whole Blood 108 mg/dL (70-110)
[2024-02-14 10:03] LABS: INR 1.1 (<1.2); Prothrombin Time 11.7 sec (10.0-12.5)
[2024-02-14 10:04] LABS: Basophils % (A) 1 %; Eosinophils # (A) 0.1 k/uL (0-0.7); Eosinophils % (A) 1 %; HCT 42.5 % (39.0-53.0); HGB 14.2 gm/dL (13.0-17.5); Lymphocytes # (A) 1.1 k/uL (1.0-4.8); Lymphocytes % (A) 22 %; MCH 31.1 pg (25.0-35.0); MCHC 33.4 g/dL (31.0-37.0); MCV 93.3 fL (80.0-100.0); Mean Platelet Volume 7.1; Monocytes # (A) 0.3 k/uL (0-1.0); Monocytes % (A) 6 %; Neutrophils # (A) 3.4 k/uL (1.3-7.7); Neutrophils % (A) 69 %; Platelet Count 261 k/uL (150-450); RBC 4.56 m/uL (4.30-5.90); RDW 12.4 % (11.5-15.5); WBC 4.9 k/uL (3.8-10.6)
[2024-02-14] MEDS ORDERED: amLODIPine 2.5 MG TAB PO SCH (10:15)
[2024-02-14 10:40] LABS: African American GFR (CKD) >90 (>60 ml/min/1.73 sqM); Anion Gap 5 mmol/L; Blood Urea Nitrogen 12 mg/dL (9-20); Calcium 8.9 mg/dL (8.4-10.2); Carbon Dioxide 24 mmol/L (22-30); Chloride 103 mmol/L (98-107); Glucose 117 mg/dL (74-99); Non-African American GFR(CKD) >90 (>60 ml/min/1.73 sqM); Potassium 4.6 mmol/L (3.5-5.1); Sodium 132 mmol/L (137-145)
[2024-02-14] MEDS: lisinopriL 20 MG TAB PO SCH (11:12)
--- NOTE | 2024-02-14 11:22 | CA ---
Transthoracic Echo Report Name: Rinku León Age: 63 Gender: M : 1960 Exam Date: 02/14/2024 09:40 Exam Location: [place] [facility] Ht (in): 71 Wt (lb): 193 Ordering Physician: Lazaro Prado MD Attending/Referring Phys: Video Game Repair Technician Gisel Amato RDCS Procedure CPT: Indications: Afib with RVR Cardiac Hx: Technical Quality: Good Contrast 1: Total Dose (mL): Contrast 2: Total Dose (mL): MEASUREMENTS (Male / Female) Normal Values 2D ECHO LV Diastolic Diameter PLAX 4.6 cm 4.2 - 5.9 / 3.9 - 5.3 cm LV Systolic Diameter PLAX 3.1 cm IVS Diastolic Thickness 1.0 cm 0.6 - 1.0 / 0.6 - 0.9 cm LVPW Diastolic Thickness 1.0 cm 0.6 - 1.0 / 0.6 - 0.9 cm LV Relative Wall Thickness 0.4 LVOT Diameter 2.2 cm LV Diastolic Volume MOD BP 151.1 cm??? 67 - 155 / 56 - 104 cm??? LV Systolic Volume MOD BP 46.4 cm??? 22 - 58 / 19 - 49 cm??? LV Ejection Fraction MOD BP 69.3 % >= 55 % LV Cardiac Index MOD BP 3528.0 cm???/min???m??? LV Diastolic Volume MOD 4C 163.1 cm??? LV Systolic Volume MOD 4C 45.6 cm??? LV Ejection Fraction MOD 4C 72.0 % LV Cardiac Index MOD 4C 3957.4 cm???/min???m??? LV Diastolic Length 4C 10.0 cm LV Systolic Length 4C 8.0 cm LV Diastolic Volume MOD 2C 137.2 cm??? LV Systolic Volume MOD 2C 46.5 cm??? LV Ejection Fraction MOD 2C 66.1 % LV Cardiac Index MOD 2C 3055.9 cm???/min???m??? LV Diastolic Length 2C 9.8 cm LV Systolic Length 2C 8.1 cm LA Volume 68.6 cm??? 18 - 58 / 22 - 52 cm??? LA Volume Index 32.6 cm???/m??? 16 - 28 cm???/m??? Ascending Aorta Diameter 3.5 cm DOPPLER AV Peak Velocity 173.4 cm/s AV Peak Gradient 12.0 mmHg AV Mean Velocity 109.5 cm/s AV Mean Gradient 5.5 mmHg AV Velocity Time Integral 36.1 cm LVOT Peak Velocity 140.9 cm/s LVOT Peak Gradient 7.9 mmHg LVOT Velocity Time Integral 28.9 cm LVOT Stroke Volume 111.9 cm??? LVOT Stroke Volume Index 53.9 ml/m??? LVOT Cardiac Index 3770.7 cm???/min???m??? AV Area Cont Eq vti 3.1 cm??? AV Area Cont Eq pk 3.2 cm??? MV Area PHT 4.6 cm??? Mitral E Point Velocity 62.8 cm/s Mitral A Point Velocity 87.5 cm/s Mitral E to A Ratio 0.7 MV Deceleration Time 163.3 ms PV Peak Velocity 129.1 cm/s PV Peak Gradient 6.7 mmHg FINDINGS Left Ventricle Left ventricular ejection fraction is estimated at 60-65 %. Left ventricular cavity size normal. Left ventricular wall thickness normal. No obvious regional wall motion abnormalities. Right Ventricle Normal right ventricular size and function. Unable to estimate the right ventricular systolic pressure. Right Atrium Normal right atrial size. Left Atrium Mildly increased left atrial volume. Mitral Valve Structurally normal mitral valve. No evidence for mitral valve prolapse. No mitral stenosis. Trace mitral regurgitation. Aortic Valve Trileaflet aortic valve. Aortic valve sclerosis. No aortic stenosis. No aortic regurgitation. Tricuspid Valve Structurally normal tricuspid valve. No tricuspid stenosis. Trace tricuspid regurgitation. Pulmonic Valve Structurally normal pulmonic valve. No pulmonic stenosis. No pulmonic regurgitation. Incresed velocities. Pericardium No pericardial effusion. Thickening/calcification of the pericardium present. Aorta Normal size aortic root and proximal ascending aorta. CONCLUSIONS Normal LV size and systolic function with mild concentric LVH. There is aortic sclerosis and mitral annular calcification. Minimal mitral and tricuspid regurgitation. No significant pulmonary hypertension however right-sided pressures are not well quantified. No pericardial effusion Previewed by: Dr. Alek Mccarthy MD (Electronically Signed) Final Date: 14 February 2024 11:21
--- NOTE | 2024-02-14 11:33 | P.CRDCN ---
History of Present Illness Consult date: 02/14/24 Reason for Consult (text): New onset A-fib with RVR History of present illness: This is a 63-year-old male patient with no previous cardiac history and does not follow with a visual c developer. Patient states that he works out every morning then takes his dog for a walk and he then took a shower went to go up the stairs and developed palpitations and a little shortness of breath. He denies any lightheadedness or dizziness. He ate and rested and he was feeling better but then he noticed that he was still feeling the palpitations and decided to come into the hospital for further evaluation. Patient was found to be in atrial fibrillation was started on heparin drip and Cardizem drip. Cardizem drip is currently on hold as patient has converted to sinus rhythm. Patient may have had a previous episode a couple weeks ago. This episode lasted less than 24 hours. Blood pressure 139/68, heart rate 64, pulse ox 98% on room air. Patient is seen today in the emergency center waiting for a bed on the cardiac stepdown unit. 2D echocardiogram was reviewed at the bedside with normal EF and no significant valvular disease. EKG: #1 atrial fibrillation at 166 bpm, #2 sinus rhythm Chest x-ray: No acute findings Laboratory studies: CBC normal. Sodium 132, potassium 4.6, creatinine 0.75. Troponin negative x 1. TSH 0.955. Magnesium 1.8. Home cardiac medications: Amlodipine 2.5 mg daily, lisinopril 10 mg daily, fish oil daily. Review Of Systems: At the time of my exam: CONSTITUTIONAL: Denies fever or chills. HEENT: Denies blurred vision, vision changes, or eye pain. Denies hemoptysis CARDIOVASCULAR: Denies chest pain. Denies orthopnea. Denies PND. Denies palpitations RESPIRATORY: Denies shortness of breath. GASTROINTESTINAL: Denies abdominal pain. Denies nausea or vomiting. HEMATOLOGIC: Denies bleeding disorders. GENITOURINARY: Denies any blood in urine. SKIN: Denies puritis. Denies rash. Physical examination: Gen: This is a 63-year-old male in no acute distress. VS: reviewed HEENT: Head is atraumatic, normocephalic. Pupils equal, round. Sclerae is anicteric. NECK: Supple. No JVD. LUNGS: Clear to auscultation. No wheezes or rhonchi. No intercostal retractions. HEART: Regular rate and rhythm. No murmur. ABDOMEN: Soft No tenderness. EXTREMITIES: No pedal edema. No calf tenderness. NEUROLOGICAL: Patient is awake, alert and oriented x3. Assessment: New onset paroxysmal atrial fibrillation presented with RVR, converted to sinus rhythm Diabetes mellitus type 2 Hypertension Plan: Resume patient's home cardiac medications with the following changes Discontinue amlodipine and fish oil Increase lisinopril to 20 mg daily Discontinue heparin drip and Cardizem drip Start patient on Eliquis 5 mg twice daily Start patient on a atorvastatin 20 mg at bedtime Patient is cleared for discharge and may follow-up with Dr. Vergara in 1 week. Prescriptions for patient's new cardiac medications have been sent to his pharmacy. Thank you kindly for this consultation. Nurse practitioner note has been reviewed, I agree with documented findings and plan of care. Patient was seen and examined. 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 Past Anesthesia/Blood Transfusion Reactions: No Reported Reaction Past Psychological History: No Psychological Hx Reported Smoking Status: Former smoker - Past Family History Mother Family Medical History: No Reported History Additional Family Medical History / Comment(s): preleukemia Medications and Allergies Home Medications Medication Instructions Recorded Confirmed Type Multivitamins, Thera [Multivitamin 1 tab PO DAILY 02/23/22 02/13/24 History (formulary)] Berberine Supplement 1 cap PO AC-TID 02/13/24 02/13/24 History Chromium(Unknown Dose) 1 tab PO DAILY 02/13/24 02/13/24 History Cinnamon(Unknown Dose) 1 tab PO DAILY 02/13/24 02/13/24 History Co Q-10(Unknown Dose) 1 cap PO DAILY 02/13/24 02/13/24 History Cranberry(Unknown Dose) 1 tab PO DAILY 02/13/24 02/13/24 History Garlic(Unknown Dose) 1 tab PO DAILY 02/13/24 02/13/24 History L.acidoph,Paracasei, B.lactis 1 cap PO DAILY 02/13/24 02/13/24 History [Probiotic] Turmeric(Unknown Dose) 1 tab PO DAILY 02/13/24 02/13/24 History Vitamin B Complex 1 cap PO DAILY 02/13/24 02/13/24 History Vitamin C(Unknown Dose) 1 tab PO DAILY 02/13/24 02/13/24 History Vitamin D(Unknown Dose) 1 tab PO DAILY 02/13/24 02/13/24 History Apixaban [Eliquis] 5 mg PO BID #180 tab 02/14/24 Rx Atorvastatin [Lipitor] 20 mg PO HS #90 tablet 02/14/24 Rx lisinopriL [Zestril] 20 mg PO DAILY #90 tab 02/14/24 Rx Allergies Allergy/AdvReac Type Severity Reaction Status Date / Time No Known Allergies Allergy Verified 02/13/24 16:54 Physical Exam Vitals: Vital Signs Temp Pulse Resp BP Pulse Ox 02/14/24 08:59 64 16 139/68 02/14/24 07:00 57 L 14 109/72 978 H 02/14/24 02:00 59 L 12 110/64 02/14/24 00:00 77 12 103/74 97 02/13/24 22:00 73 14 119/74 97 02/13/24 19:00 93 18 109/74 02/13/24 18:30 88 14 89/73 02/13/24 18:00 85 15 115/68 02/13/24 17:30 88 13 107/71 02/13/24 17:00 90 12 96/62 02/13/24 16:30 90 14 104/65 02/13/24 16:02 123 H 02/13/24 16:00 96 14 95/49 02/13/24 15:30 100 14 105/79 02/13/24 15:29 100 18 105/79 02/13/24 15:00 133 H 14 83/64 94 L 02/13/24 14:30 179 H 14 103/49 96 02/13/24 14:28 151 H 18 103/49 97 02/13/24 13:02 98 F 166 H 18 173/80 99 Results 02/14/24 09:17 02/14/24 09:17 Cardiac Enzymes 02/13/24 02/13/24 Range/Units 13:28 13:28 AST 37 (17-59) U/L Troponin I <0.012 (0.000-0.034) ng/mL Coagulation 02/13/24 02/13/24 Range/Units 13:28 21:34 PT 10.5 (10.0-12.5) sec APTT 24.4 44.3 H (22.0-30.0) sec CBC 02/13/24 Range/Units 13:28 WBC 8.7 (3.8-10.6) k/uL RBC 4.97 (4.30-5.90) m/uL Hgb 15.2 (13.0-17.5) gm/dL Hct 45.8 (39.0-53.0) % Plt Count 267 (150-450) k/uL Comprehensive Metabolic Panel 02/13/24 02/13/24 Range/Units 13:28 17:43 Sodium 127 L 131 L (137-145) mmol/L Potassium 4.3 4.1 (3.5-5.1) mmol/L Chloride 98 106 (98-107) mmol/L Carbon Dioxide 20 L 21 L (22-30) mmol/L BUN 20 17 (9-20) mg/dL Creatinine 0.84 0.73 (0.66-1.25) mg/dL Glucose 266 H 73 L (74-99) mg/dL Calcium 9.2 8.9 (8.4-10.2) mg/dL AST 37 (17-59) U/L ALT 29 (4-49) U/L Alkaline Phosphatase 71 (38-126) U/L Total Protein 7.1 (6.3-8.2) g/dL Albumin 4.6 (3.5-5.0) g/dL Current Medications Generic Name Dose Route Start Last Admin Trade Name Freq PRN Reason Stop Dose Admin Dextrose/Water 25 ml 02/13/24 16:35 Dextrose 50% Syringe 50 Ml IVP PER PROTOCOL PRN Hypoglycemia Protocol Dextrose/Water 50 ml 02/13/24 16:35 Dextrose 50% Syringe 50 Ml IVP PER PROTOCOL PRN Hypoglycemia Protocol Heparin Sodium (Porcine) 0 unit 02/13/24 15:50 Heparin Sodium 1,000 Un/Ml (10ml Vl) IV PER PROTOCOL PRN Low PTT Protocol Diltiazem HCl 125 mg/ Sodium 125 mls @ 5 mls/hr 02/13/24 14:45 02/13/24 15:02 Chloride IV 5 mg/hr .Q24H NANDO 5 mls/hr Administration 5 MG/HR Heparin Sodium/Sodium Chloride 250 mls @ 9.98 mls/hr 02/13/24 16:00 02/13/24 16:03 25,000 unit/ Sodium Chloride IV 11.4 units/kg/hr .Q24H NANDO 9.98 mls/hr Administration Protocol 11.4 UNITS/KG/HR Insulin Aspart 0 unit 02/13/24 17:30 02/14/24 07:33 Insulin Aspart (Novolog) 100 Unit/Ml Vial SQ Not Given ACHS NANDO Protocol Naloxone HCl 0.2 mg 02/13/24 15:48 Naloxone 0.4 Mg/Ml 1 Ml Vial IV Q2M PRN Opioid Reversal 02/13/24 13:28 02/13/24 17:43
--- NOTE | 2024-02-14 11:33 | P.EPCON ---
Electrophysiology Consult - EP Consult Electrophysiology Consult: Impression Symptomatic paroxysmal atrial fibrillation with RVR [place] episodes previously now with an episode lasting between between 12 to 24 hours Hypertension Type 2 diabetes for about 2 years Normal LV and RV size and function calcific aortic cusp left coronary cusp no aortic stenosis Suggest Anticoagulation with Eliquis 5 mg twice daily, [id number] score of 3, diabetes hypertension age 65 and aboveIncrease lisinopril to 20 mg p.o. daily and stop amlodipine, patient diabetic, maximize lisinopril for hypertension management and renal and retinal disease prevention secondary to diabetes Stop heparin Diabetes management per PCP Consider GLP-1 drugs especially since he has atrial fibrillation Stop fish oil, increases risk of bleeding and atrial tachycardia/PAT/PAF Avoidance of alcohol marijuana and nicotine products Exercise prescription discussed Follow-up with Dr. Vergara for consideration for A-fib ablation as early strategy for management of paroxysmal symptomatic atrial fibrillation Transfer tech
[2024-02-14 11:54] LABS: Glucose,Whole Blood 138 mg/dL (70-110)
--- NOTE | 2024-02-14 13:00 | P.DS ---
Providers Date of admission: 02/13/24 15:50 Expected date of discharge: 02/14/24 Attending physician: Darnell Prado Consults: 02/13/24 15:48 Consult Physician Urgent Consulting Provider: [facility] Consult Reason/Comments: new onset afib with rvr Do you want consulting provider notified?: Yes Primary care physician: [facility] Course: Discharge Diagnosis: #New onset A-fib with the RVR # Hypovolemic hyponatremia #History of type 2 diabetes Hypertension Hospital Course: Patient is a 63-year-old male with PMH of type 2 diabetes and hypertension presented to the ER after having an episode of palpitation. Patient states that he was at home when he started feeling sudden onset of palpitation associated with shortness of breath and diaphoresis. Patient had similar episode about 2 weeks ago. Lab evaluation in ED shows sodium 127, potassium 4.3, chloride 98, bicarb 20, BUN 20, creatinine 0.84, glucose 266. WBC 8.7, hemoglobin 15.2, MCV 92.1, platelet count 267. Troponin I less than 0.012. TSH 0.955. Chest x-ray, independently interpreted shows no acute cardiopulmonary process. EKG shows independently interpreted A-fib with RVR. Patient was started on Cardizem drip. Cardiology was consulted. Echocardiogram normal with ejection fraction of 60 to 65%. Patient no longer complaining of active chest pain. Patient converted to normal sinus rhythm. Hyponatremia improved. Patient medically optimized to be discharged. Discharge instruction: Patient is advised to follow-up with PCP and chemical lab technician within 1 week. Patient to continue with his home medications as directed Additionally patient to continue apixaban 5 mg p.o. twice daily, lisinopril 20 mg p.o. daily, Lipitor 20 mg p.o. at bedtime. Patient is provided with instruction/handout for afibrillation. Vital signs reviewed. Gen: in no apparent distress, resting comfortably in bed Eyes: PERRL, no scleral injection or icterus HENT: normocephalic, atraumatic, good hearing acuity, moist mucous membranes Neck: full range of motion Resp: CTAB, no rales, rhonchi, or wheezes CVS: normal S1 and S2, no murmurs, rubs or gallops, no edema GI: soft, NTTP, ND, no hepatosplenomegaly : no suprapubic tenderness, no CVAT, buckner catheter is/not present MSK: no clubbing, no cyanosis, no noted contractures of extremities Skin: no noted rashes, petechiae; temperature of skin is appropriate Neuro: moving all extremities without signs of weakness, CN II-XII intact Psych: cooperative, euthymic mood, insight and judgment intact A total of 36 minutes of time were spent preparing this complex discharge summary. Patient was discharged on 02/14/2024 at 1155. I have seen and evaluated the patient today. Discussed with the resident and agree with the residents finding and plan as documented in the resident's note. Changes highlighted in blue font. Patient Condition at Discharge: Stable Plan - Discharge Summary New Discharge Prescriptions: New Apixaban [Eliquis] 5 mg PO BID #180 tab lisinopriL [Zestril] 20 mg PO DAILY #90 tab Atorvastatin [Lipitor] 20 mg PO HS #90 tablet Metoprolol Tartrate [Lopressor] 50 mg PO BID PRN #60 tab PRN Reason: palpitations Continue L.acidoph,Paracasei, B.lactis [Probiotic] 1 cap PO DAILY Vitamin B Complex 1 cap PO DAILY Vitamin C(Unknown Dose) 1 tab PO DAILY Turmeric(Unknown Dose) 1 tab PO DAILY Cranberry(Unknown Dose) 1 tab PO DAILY Cinnamon(Unknown Dose) 1 tab PO DAILY Multivitamins, Thera [Multivitamin (formulary)] 1 tab PO DAILY Garlic(Unknown Dose) 1 tab PO DAILY Co Q-10(Unknown Dose) 1 cap PO DAILY Vitamin D(Unknown Dose) 1 tab PO DAILY Chromium(Unknown Dose) 1 tab PO DAILY Berberine Supplement 1 cap PO AC-TID Discontinued lisinopriL [Zestril] 10 mg PO DAILY amLODIPine [Norvasc] 2.5 mg PO DAILY Fish Oil(Unknown Dose) 1 cap PO DAILY Discharge Medication List Multivitamins, Thera [Multivitamin (formulary)] 1 tab PO DAILY 02/23/22 [History] Berberine Supplement 1 cap PO AC-TID 02/13/24 [History] Chromium(Unknown Dose) 1 tab PO DAILY 02/13/24 [History] Cinnamon(Unknown Dose) 1 tab PO DAILY 02/13/24 [History] Co Q-10(Unknown Dose) 1 cap PO DAILY 10/23/24 [History] Cranberry(Unknown Dose) 1 tab PO DAILY 02/13/24 [History] Garlic(Unknown Dose) 1 tab PO DAILY 02/13/24 [History] L.acidoph,Paracasei, B.lactis [Probiotic] 1 cap PO DAILY 02/13/24 [History] Turmeric(Unknown Dose) 1 tab PO DAILY 02/13/24 [History] Vitamin B Complex 1 cap PO DAILY 02/13/24 [History] Vitamin C(Unknown Dose) 1 tab PO DAILY 02/13/24 [History] Vitamin D(Unknown Dose) 1 tab PO DAILY 02/13/24 [History] Apixaban [Eliquis] 5 mg PO BID #180 tab 02/14/24 [Rx] Atorvastatin [Lipitor] 20 mg PO HS #90 tablet 02/14/24 [Rx] Metoprolol Tartrate [Lopressor] 50 mg PO BID PRN #60 tab 02/14/24 [Rx] lisinopriL [Zestril] 20 mg PO DAILY #90 tab 02/14/24 [Rx] Follow up Appointment(s)/Referral(s): Judson Vergara MD [STAFF PHYSICIAN] - 1 Week Ryan Gallardo MD [Primary Care Provider] - 1-2 days Patient Instructions/Handouts: A-fib (Atrial Fibrillation) (DC) Activity/Diet/Wound Care/Special Instructions: please follow up with PCP and chemical lab technician. Discharge Disposition: HOME SELF-CARE
[2024-02-14 13:56] VITALS: PULSE 77
[2024-02-14 14:39] VITALS: BP 116/67; RESP 16
[2024-02-14 16:47] LABS: Chol/HDL Ratio 2.64 Ratio; LDL Cholesterol,Calculated 122.2 mg/dL (0.0-131.0)
[2024-02-14] MEDS ORDERED: APIXABAN 5 MG TAB PO SCH (21:00)
[2024-02-14] MEDS ORDERED: ATORVASTATIN 20 MG TAB PO SCH (21:00)
== END 2024-02-14 14:39 | disposition home or self-care (01) | DRG 309 ==
LOC: EC 13:01 → 3SCARD 15:50
PROVIDERS: ADMIT Student in an Organized Health Care Education/Training Program; ATTEND Student in an Organized Health Care Education/Training Program
DX: I48.0 Paroxysmal atrial fibrillation (principal); E87.1 Hypo-osmolality and hyponatremia; Z87.891 Personal history of nicotine dependence; Z86.16 Personal history of COVID-19; I10 Essential (primary) hypertension; Z79.01 Long term (current) use of anticoagulants; Z79.899 Other long term (current) drug therapy; E86.1 Hypovolemia; E11.9 Type 2 diabetes mellitus without complications
CPT/HCPCS: 36415; 71046; 80048; 80053; 80061; 83036; 83735; 83930; 83935; 84300; 84443; 84484; 85025; 85379; 85610; 85730; 93306; 96365; 96366; 96368; 99291

== ENCOUNTER → 2024-07-21 | Outpatient (CLI) | payer MEDICARE ==
[2024-07-21 14:59] LABS: HCT 42.9 % (39.6-50.0); HGB 14.6 g/dL (13.0-17.0); MCH 31.3 pg (27.0-32.0); MCV 91.9 FL (80.0-97.0); Mean Platelet Volume 9.4 FL (9.5-12.2); NRBC Per 100 WBC 0 X 10*3/uL (0.00-0.01); Platelet Count 233 X 10*3/uL (140-440); RBC 4.67 X 10*6/uL (4.40-5.60); RDW 11.9 % (11.5-14.5); WBC 6.27 X 10*3/uL (4.50-10.00)
[2024-07-21 15:17] LABS: Blood Urea Nitrogen 13.6 mg/dL (9.0-27.0); Carbon Dioxide 25.9 mmol/L (21.6-31.8); Chloride 98 mmol/L (96-109); Potassium 4.6 mmol/L (3.5-5.5); Sodium 133 mmol/L (135-145)
== END | disposition home or self-care (01) ==
LOC: LABPAT 07:55
PROVIDERS: ATTEND Internal Medicine Clinical Cardiac Electrophysiology
DX: Z01.812 Encounter for preprocedural laboratory examination (principal); I48.0 Paroxysmal atrial fibrillation
CPT/HCPCS: 80051; 82565; 84520; 85027

== ENCOUNTER 2024-07-28 10:56 | Day surgery (SDC) | payer MEDICARE ==
[~2024-07-28 10:56] MED LIST changes: -DEXAMETHASONE SOD PHOSPHATE 10 MG/ML 1 ML VIAL IV ONE; -HEPARIN SODIUM,PORCINE 5,000 UNIT/ML 1 ML VIAL SQ ONE; -LACTATED RINGERS 1,000 ML IV SCH; -LIDOCAINE 1% (10MG/ML) FOR IV START INTRADERMA PRN; -ONDANSETRON 4 MG/2 ML VIAL IVP ONE; -SCOPOLAMINE 1.5MG/72HR PATCH TRANSDERM ONE
[2024-07-28] MEDS: LACTATED RINGERS 1,000 ML IV SCH (11:41)
[2024-07-28] MEDS: SODIUM CHLORIDE 0.9% 1,000 ML IV SCH (11:42)
[2024-07-28] MEDS: IV FLUID CONTINUATION 1,000 ML IV ONE (11:42)
[2024-07-28 12:46] LABS: ALT 34 U/L (4-49); AST 34 U/L (17-59); African American GFR (CKD) >90 (>60 ml/min/1.73 sqM); Albumin 4.6 g/dL (3.5-5.0); Alkaline Phosphatase 97 U/L (38-126); Anion Gap 7 mmol/L; Blood Urea Nitrogen 19 mg/dL (9-20); Calcium 9.5 mg/dL (8.4-10.2); Carbon Dioxide 27 mmol/L (22-30); Chloride 99 mmol/L (98-107); Glucose 119 mg/dL (74-99); Non-African American GFR(CKD) >90 (>60 ml/min/1.73 sqM); Potassium 4.5 mmol/L (3.5-5.1); Sodium 133 mmol/L (137-145); Total Bilirubin 0.8 mg/dL (0.2-1.3); Total Protein 7.5 g/dL (6.3-8.2)
[2024-07-28] MEDS ORDERED: MIDAZOLAM 2 MG/2 ML VIAL ONE (13:05)
[2024-07-28] MEDS ORDERED: LIDOCAINE 1% INJ 10MG/ML (20 ML MDV) ONE (13:05)
[2024-07-28] MEDS ORDERED: PHENYLEPHRINE 10 MG/ML VIAL ONE (13:05)
[2024-07-28] MEDS ORDERED: SUCCINYLCHOLINE CHLORIDE 200 MG/10 ML VIAL IV ONE (13:05)
[2024-07-28] MEDS ORDERED: PROPOFOL 10 MG/ML 20 ML VIAL IV ONE (13:05)
[2024-07-28] MEDS ORDERED: fentaNYL (PF) 50 MCG/ML 2 ML AMP ONE (13:05)
[2024-07-28] MEDS ORDERED: ISOPROTERENOL 250 MCG/1.25 ML SYR IV ONE (13:05)
[2024-07-28] MEDS ORDERED: HEPARIN SODIUM,PORCINE 10,000 UNIT/ML 1 ML VIAL ONE (13:05)
[2024-07-28] MEDS: HEPARIN SODIUM,PORCINE 10,000 UNIT in SODIUM CHLORIDE 0.9% 1,000 ML IRRIGATION ONE (13:52)
[2024-07-28] MEDS: HEPARIN SODIUM,PORCINE (1 ML) 2,500 UNIT in SODIUM CHLORIDE 0.9% 250 ML IRRIGATION ONE (13:52)
[2024-07-28] MEDS: HEPARIN SOD,PORK IN 0.45% NACL 25,000 UNIT in 0.45% NACL 1 250ML.BAG IV ONE (13:52)
[2024-07-28] MEDS: LIDOCAINE 1% INJ 10MG/ML (20 ML MDV) SQ ONE (13:54)
[2024-07-28] MEDS: IOPAMIDOL-370 100ML BTL INJ ONE (14:47)
[2024-07-28] MEDS ORDERED: METOPROLOL TARTRATE 25 MG TAB PO PRN (16:10)
[2024-07-28] MEDS ORDERED: CYCLOBENZAPRINE 10 MG TAB PO PRN (16:10)
--- NOTE | 2024-07-28 16:19 | P.PRLE ---
RE: Rinku León Dear Mejia Dobbs underwent ablation for paroxysmal atrial fibrillation successfully He has a history of hypertension dyslipidemia and has had new onset atrial fibrillation He will remain on anticoagulation with Eliquis 5 mg twice daily along with all other cardiac medications but I am reducing the dose of metoprolol to 25 mg twice daily Thank you for entrusting me with the care of the patient Warm regards Sincerely Judsno Vergara
--- NOTE | 2024-07-28 16:22 | P.HPCAR ---
History of Present Illness This is Dr. Vergara dictating an H/P on this patient The patient was interviewed and examined IMPRESSION / ASSESSMENT: Paroxysmal atrial fibrillation symptomatic Hospitalized for this few months back Hypertension Dyslipidemia PLAN: Heparin dose calculated. Continue anticoagulation with Eliquis Proceed with A-fib ablation HPI Patient continues to experience episodes of fluttering No dizziness or loss of consciousness chest discomfort No orthopnea No fever chills cough expectoration recently ROS: No fever chills or rigors, no cough, phlegm or expectoration, no nausea, vomiting or diarrhea, no hematuria, dysuria, no musculoskeletal complaints, no strokes or seizures, no skin lesions. EXAMINATION: 118/58 mmHg pulse rate in the 70s afebrile Heart sounds S1-S2 normal No JVD no hepatojugular reflux Normal heart sounds regular no murmurs no gallop or rub Abdomen soft nontender Clear lungs no rhonchi no crackles No lower extremity edema REVIEW OF LABS, ECG & MEDICAL DATA Sodium 133, potassium 4.5 BUN 19 and creatinine 0.7 Normal liver function TSH normal at 0.8 Physical Exam Vitals: Vital Signs Temp Pulse Resp BP BP BP Pulse Ox 07/28/24 15:44 97.6 F 72 16 118/58 97 07/28/24 11:44 98 F 85 16 187/82 168/74 100 Intake and Output 07/28/24 07/28/24 07/28/24 06:59 14:59 22:59 Intake Total 849 Balance 849 Intake: IV 849 Other: Weight 88.2 kg Past Medical History Past Medical History: Atrial Fibrillation, Diabetes Mellitus, Hypertension Additional Past Medical History / Comment(s): Covid infection , HX OF JAUNDICE AT 7 YEARS OLD, Type II DM History of Any Multi-Drug Resistant Organisms: None Reported Past Surgical History: Hernia Repair Additional Past Surgical History / Comment(s): Sher INGUINAL HERNIA, 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 Past Anesthesia/Blood Transfusion Reactions: No Reported Reaction Smoking Status: Former smoker - Past Family History Mother Family Medical History: No Reported History Additional Family Medical History / Comment(s): preleukemia Physical Examination Vital Signs Temp Pulse Resp BP BP BP Pulse Ox 07/28/24 15:44 97.6 F 72 16 118/58 97 07/28/24 11:44 98 F 85 16 187/82 168/74 100 Intake and Output 07/28/24 07/28/24 07/28/24 06:59 14:59 22:59 Intake Total 849 Balance 849 Intake: IV 849 Other: Weight 88.2 kg Results 07/28/24 11:06 Cardiac Enzymes 07/28/24 Range/Units 11:06 AST 34 (17-59) U/L Comprehensive Metabolic Panel 07/28/24 Range/Units 11:06 Sodium 133 L (137-145) mmol/L Potassium 4.5 (3.5-5.1) mmol/L Chloride 99 (98-107) mmol/L Carbon Dioxide 27 (22-30) mmol/L BUN 19 (9-20) mg/dL Creatinine 0.74 (0.66-1.25) mg/dL Glucose 119 H (74-99) mg/dL Calcium 9.5 (8.4-10.2) mg/dL AST 34 (17-59) U/L ALT 34 (4-49) U/L Alkaline Phosphatase 97 (38-126) U/L Total Protein 7.5 (6.3-8.2) g/dL Albumin 4.6 (3.5-5.0) g/dL Current Medications Generic Name Dose Route Start Last Admin Trade Name Freq PRN Reason Stop Dose Admin Acetaminophen 650 mg 07/28/24 22:30 Acetaminophen Tab 325 Mg Tab PO Q6HR PRN Mild Pain (Scale 1 to 3) Apixaban 5 mg 07/28/24 21:00 Apixaban 5 Mg Tab PO BID [facility] Protocol Atorvastatin Calcium 20 mg 07/28/24 21:00 Atorvastatin 20 Mg Tab PO [facility] Cyclobenzaprine HCl 10 mg 07/28/24 16:10 Cyclobenzaprine 10 Mg Tab PO TID PRN Muscle Spasm Hydromorphone HCl 0.5 mg 07/28/24 07:00 Hydromorphone 0.5 Mg/0.5 Ml Syringe IVP 07/28/24 23:00 Q5M PRN Phase 1 or 2 - Pain Control Sodium Chloride 1,000 mls @ 20 mls/hr 07/28/24 05:57 07/28/24 11:42 Saline 0.9% IV 08/27/24 05:56 20 mls/hr .Q24H NANDO Administration Lactated Ringer's 1,000 mls @ 20 mls/hr 07/28/24 05:57 07/28/24 11:41 Lactated Ringers IV 08/27/24 05:56 Not Given .Q24H NANDO Acetaminophen 1,000 mg/ IV 100 mls @ 400 mls/hr 07/28/24 16:12 Solution IVPB 07/28/24 16:26 ONCE ONE Lisinopril 20 mg 07/29/24 09:00 Lisinopril 20 Mg Tab PO DAILY NANDO Metoprolol Tartrate 25 mg 07/28/24 16:10 Metoprolol Tartrate 25 Mg Tab PO BID PRN palpitations Midazolam HCl 2 mg 07/28/24 07:00 Midazolam 2 Mg/2 Ml Vial IV 07/28/24 23:00 ONCE PRN Pre-Op Anxiety Sodium Chloride 12 ml 07/28/24 16:12 Sodium Chloride 0.9% Flush 10 Ml Syringe IV Q12HR PRN Line Flush Intake and Output 07/28/24 07/28/24 07/28/24 06:59 14:59 22:59 Intake Total 849 Balance 849 Intake: IV 849 Other: Weight 88.2 kg Patient Weight 07/29/24 06:59 Weight 88.2 kg 07/28/24 11:06
--- NOTE | 2024-07-28 16:26 | P.EPPROC ---
- EP Procedure Note Electrophysiology Procedure Note: PROCEDURE A. fib ablation with PVI and left atrial septal ablation DIAGNOSIS Paroxysmal atrial fibrillation, symptomatic, requiring hospitalization RESULT No left atrial appendage mass seen on intracardiac echo Successful A. fib ablation/pulmonary vein isolation of all veins using cryo-abl ation Complete entrance block in all 4 veins confirmed No evidence for phrenic nerve injury Left atrial septal ablation Esophageal deflection YES PROCEDURE DETAILS Written informed consent prior to procedure. Patient brought to the EP lab. General anesthesia given. Heparin administered. A city maintained above 300 seconds Both groins prepped and draped per protocol and venous sheaths placed. Esophagus intubated, circa catheter for temperature monitoring an endoscope for possible esophageal deflection. Phrenic nerve monitoring performed. Esophageal temperature monitoring performed. Esophageal deflection performed if circa catheter overlapping with the balloon or circa temperature less than 27.5°C Intracardiac echocardiography performed. Pericardium evaluated. Left atrial appendage evaluated. Left atrium evaluated along with pulmonary veins Transseptal catheterization performed under fluoroscopic guidance and intracardiac echo guidance Cryoablation sheath exchanged, balloon catheter along with achieve catheter placed in the left atrium. Pulmonary veins isolated in the following sequence: Left superior pulmonary vein followed by left inferior pulmonary vein, followed by right inferior pulmonary vein and lastly right superior pulmonary vein. Phrenic nerve stimulation along with capture thresholds within the SVC and right superior pulmonary vein to identify the phrenic nerve proximity to the cryo- balloon. Pulmonary veins isolated and confirmed with entrance and exit block. Phrenic nerve integrity confirmed at the end of the procedure Ablation of the left atrial septum performed with cannulation of the superior branch of the right inferior or the inferior branch of the right superior vein to achieve ablation of the posterior septum of the left atrium. Ablation of electrograms confirmed Diagnostic catheters for the high right atrium, His bundle, coronary sinus placed. LA and RA pressures recorded LA pressure: Diagnostic EP study with coronary sinus pacing and recording Baseline measurements: Sinus cycle length 830 ms, WV interval 143, QRS 103 and QT interval 414 ms AH 73 and HV interval 45 ms Sinus node recovery times were 1008, 742 and 1130 ms. Corrected sinus node recovery times within normal limits AV node Wenckebach block 350 ms High-dose Isopril infused. No further atrial fibrillation induced. No SVT induced Burst stimulation from the high right atrium from 400 ms down to 300 ms No inducible SVT or atrial fibrillation Venous sheaths were removed and hemostasis assured with a closure device. Patient extubated and transferred to recovery PROCEDURES PERFORMED Diagnostic EP study CS pacing and recording Left and right transseptal catheterization Catheter the mapping of the tachycardia Intracardiac echocardiography Pulmonary vein isolation with transseptal and comprehensive EPS, [id number] Drug infusion, [id number] Linear ablation, left atrium, [id number]
[2024-07-28] MEDS: ACETAMINOPHEN IV (For NPO) 1,000 MG in EMPTY BAG 1 BAG IVPB ONE (16:37)
[2024-07-28] MEDS: ATORVASTATIN 20 MG TAB PO SCH (20:50)
[2024-07-28] MEDS: APIXABAN 5 MG TAB PO SCH (20:50)
[2024-07-28] MEDS ORDERED: ACETAMINOPHEN TAB 325 MG TAB PO PRN (22:30)
[2024-07-29 08:37] VITALS: BP 133/73; PULSE 77; RESP 17; TEMP 98.1
[2024-07-29] MEDS ORDERED: lisinopriL 20 MG TAB PO SCH (09:00)
--- NOTE | 2024-07-29 10:59 | P.DS ---
Providers Attending physician: Judson Vergara Primary care physician: [facility] Course: Patient is doing very well. No chest discomfort dizziness lightheadedness No palpitations no undue shortness of breath His groins have healed well no hematoma no swelling On examination his vitals are stable blood pressure is normal heart sounds are normal no murmurs no gallop no rub Clear lungs no rhonchi no crackles Abdomen soft Groins have healed well no hematoma Impression symptomatic paroxysmal atrial fibrillation with RVR Status post PVI and left atrial septal ablation yesterday Plan ambulate in the hallways and then discharge home Continue anticoagulation uninterrupted As needed use of metoprolol Continue all other medications including lisinopril and atorvastatin Follow-up with Dr Vergara in 1 week Plan - Discharge Summary Discharge Rx Participant: Yes New Discharge Prescriptions: New Metoprolol Tartrate 25 mg PO BID #180 tab Discontinued Metoprolol Tartrate [Lopressor] 50 mg PO BID PRN #60 tab PRN Reason: palpitations No Action L.acidoph,Paracasei, B.lactis [Probiotic] 1 cap PO DAILY Vitamin B Complex 1 cap PO DAILY Vitamin C(Unknown Dose) 1 tab PO BID Cranberry(Unknown Dose) 1 tab PO DAILY Cinnamon(Unknown Dose) 1 tab PO DAILY Apixaban [Eliquis] 5 mg PO BID #180 tab lisinopriL [Zestril] 20 mg PO DAILY #90 tab Cyclobenzaprine [Flexeril] 10 mg PO TID PRN PRN Reason: Muscle Spasm Multivitamins, Thera [Multivitamin (formulary)] 1 tab PO DAILY Garlic(Unknown Dose) 1 tab PO DAILY Vitamin D(Unknown Dose) 1 tab PO DAILY Chromium(Unknown Dose) 1 tab PO DAILY Berberine Supplement 1 cap PO AC-TID Atorvastatin [Lipitor] 20 mg PO HS #90 tablet B Complex-Vit C-Vit E-Zinc [Z-Bec] 1 tab PO DAILY Discharge Medication List Multivitamins, Thera [Multivitamin (formulary)] 1 tab PO DAILY 02/23/22 [History] Berberine Supplement 1 cap PO AC-TID 02/13/24 [History] Chromium(Unknown Dose) 1 tab PO DAILY 02/13/24 [History] Cinnamon(Unknown Dose) 1 tab PO DAILY 02/13/24 [History] Cranberry(Unknown Dose) 1 tab PO DAILY 02/13/24 [History] Garlic(Unknown Dose) 1 tab PO DAILY 02/13/24 [History] L.acidoph,Paracasei, B.lactis [Probiotic] 1 cap PO DAILY 02/13/24 [History] Vitamin B Complex 1 cap PO DAILY 02/13/24 [History] Vitamin C(Unknown Dose) 1 tab PO BID 02/13/24 [History] Vitamin D(Unknown Dose) 1 tab PO DAILY 02/13/24 [History] Apixaban [Eliquis] 5 mg PO BID #180 tab 02/14/24 [Rx] Atorvastatin [Lipitor] 20 mg PO HS #90 tablet 02/14/24 [Rx] lisinopriL [Zestril] 20 mg PO DAILY #90 tab 02/14/24 [Rx] B Complex-Vit C-Vit E-Zinc [Z-Bec] 1 tab PO DAILY 07/24/24 [History] Cyclobenzaprine [Flexeril] 10 mg PO TID PRN 07/24/24 [History] Metoprolol Tartrate 25 mg PO BID #180 tab 07/28/24 [Rx] Follow up Appointment(s)/Referral(s): Judson Vergara MD [STAFF PHYSICIAN] - 08/05/24 10:00 am Patient Instructions/Handouts: Cardiac Ablation (DC), Electrophysiology Study (GEN) Activity/Diet/Wound Care/Special Instructions: ok to shower no tub baths or swimming in hot tubs, pools, ponds or lakes for next month no excessive bending at hips do not lift over 5 pounds for next 5 days continue with home meds continue with metoprolol as needed no driving for 3 to 5 days Discharge Disposition: HOME SELF-CARE
== END 2024-07-29 10:06 | disposition home or self-care (01) ==
LOC: CATHEP 10:56 → 6NMEDSUR 15:16 → CATHEP 07-29 10:06
PROVIDERS: ATTEND Internal Medicine Clinical Cardiac Electrophysiology
DX: I48.0 Paroxysmal atrial fibrillation (principal); E11.9 Type 2 diabetes mellitus without complications; E78.5 Hyperlipidemia, unspecified; I10 Essential (primary) hypertension; Z79.01 Long term (current) use of anticoagulants; Z79.899 Other long term (current) drug therapy; Z86.16 Personal history of COVID-19; Z87.891 Personal history of nicotine dependence; Z98.890 Other specified postprocedural states
CPT/HCPCS: 93623; 93656; 93657; 86900; 86901; 80053; 84443; 86850; J1644 ×3; J2003; J0131; Q9967